=== PATIENT | male | born 1980 | race African-American/Black ===

== ENCOUNTER 2017-07-30 11:02 | Emergency (ER) | payer MEDICAID ==
[~2017-07-30] VITALS: Ht 182.9 cm; Wt 79.4 kg
[2017-07-30 11:14] VITALS: BP 123/80
[2017-07-30 11:59] VITALS: BP 123/80
--- NOTE | 2017-07-30 12:25 | Diagnostic Imaging Report ---
Indication: pain Findings: 3 views of the right hand were obtained. Normal bony mineralization and alignment are demonstrated. No acute fractures, erosions, or periosteal reaction are seen. Soft tissues are unremarkable. Impression: No acute findings.
--- NOTE | 2017-07-30 12:56 | Emergency Room Report ---
History of Present Illness General Chief Complaint: Pain Source: Patient Present Illness HPI 37-year-old male complaining of right finger pain for one week. Patient states he was playing football caught the ball injured his finger does not know how unknown has since had pain to right index finger. Worse with movement. No other injuries Allergies: Coded Allergies: No Known Allergies (Unverified , 07/30/17) Patient History Past Medical History: see triage record Past Surgical History: none Pertinent Family History: none Reviewed Nursing Documentation: PMH: Agreed, PSxH: Agreed Nursing Documentation-PMH Past Medical History: No Stated History Review of Systems All Other Systems: negative except mentioned in HPI Physical Exam Vital Signs Date Time Temp Pulse Resp B/P (MAP) Pulse Ox O2 Delivery O2 Flow Rate FiO2 07/30/17 11:08 97.9 50 16 123/80 100 Room Air Sp02 EP Interpretation: reviewed, normal General Appearance: normal inspection, well appearing, no apparent distress, alert, GCS 15, non-toxic Head: normocephalic, atraumatic Eyes: bilateral eye normal inspection, bilateral eye PERRL, bilateral eye EOMI ENT: normal ENT inspection, normal pharynx, normal voice, moist mucus membranes Neck: normal inspection, full range of motion, supple Respiratory: normal inspection, lungs clear, normal breath sounds, no respiratory distress, no retraction, no wheezing, speaking full sentences, chest symmetrical Cardiovascular #1: normal inspection, regular rate, rhythm, no edema, normal capillary refill Cardiovascular #2: 2+ radial (R), 2+ radial (L) Gastrointestinal: normal inspection, non tender, soft, non-distended, no guarding Genitourinary: no CVA tenderness Musculoskeletal: back normal, other - Right index finger, swelling noted distal phalanx, around PIP, tender to palpation, FDS and FDP intact, no other abnormalities Neurologic: normal inspection, alert, oriented x3, responsive, motor strength/ tone normal, sensory intact, normal gait, speech normal Psychiatric: normal inspection, judgement/insight normal, memory normal Skin: normal inspection, normal color, no rash, warm/dry, well hydrated, normal turgor Medical Decision Making Diagnostic Impression: Primary Impression: Phalanx, distal fracture of finger ER Course 37-year-old male with right finger pain DDX: Contusion vs. fracture Plan: XR ER course: Distal phalanx fracture Finger splint applied Disposition: Patient instructed to keep splint on at all times, and to follow up with orthopedic surgery in 1 week. Patient educated to rest, ice, and elevate extremity and to avoid vigorous activity. Strict precautions discussed with patient on when to return to the emergency room including increased redness or swelling joints, increased pain/swelling of extremity, fever or chills, which could indicate severe illness. Patient is to follow up with their primary care doctor within 5 days. Patient also instructed to follow up with an orthopedic doctor if continuing to have mild/moderate pain as he may need further outpatient imaging. Patient agrees with plan. Please note that this Emergency Department Report was dictated using [employer] process architect technology software, occasionally this can lead to erroneous entry secondary to interpretation by the dictation equipment. Xray ordered: Right hand 3 view Indication: Pain EP Interpretation: Yes Interpretation: right second digit distal phalanx fracture Impression: Right second digit distal phalanx fracture Electronically signed by Owen Abbott MD Last Vital Signs Date Time Temp Pulse Resp B/P (MAP) Pulse Ox O2 Delivery O2 Flow Rate FiO2 07/30/17 11:59 97.9 55 16 123/80 100 Room Air Disposition: HOME, SELF-CARE Condition: Stable Patient Instructions: Finger Fracture, [id number] Additional Instructions: Please followup with orthopedics in one week Owen Abbott M.D. Jul 30, 2017 12:56
== END 2017-07-30 12:09 | disposition home or self-care (01) ==
LOC: EMR 11:34
DX: S62.630G Displaced fracture of distal phalanx of right index finger, subsequent encounter for fracture with delayed healing (principal); W21.01XD Struck by football, subsequent encounter
CPT/HCPCS: 99283

== ENCOUNTER 2019-06-24 09:01 | Emergency (ER) | payer SELFPAY ==
[~2019-06-24] VITALS: Ht 185.4 cm; Wt 74.8 kg
[2019-06-24] MEDS ORDERED: NKM (09:10)
--- NOTE | 2019-06-24 09:10 | NUR ---
ED Nurse Note: Patient walked into ED from home c/o left rib pain after punched by elbow while playing basketball last week. patient is alert awake x4 ambulatory steady gait, breathing unlabored and even, talking in full sentences.
[2019-06-24] MEDS ORDERED: Naproxen 500mg tab ORAL ONE (09:15)
[2019-06-24] MEDS ORDERED: Acetaminophen 500mg (ES) tab ORAL ONE (09:15)
[2019-06-24 09:19] VITALS: BP 112/62
--- NOTE | 2019-06-24 09:28 | NUR ---
ED Nurse Note: patient changed into gown, waiting for xray, stable in bed.
--- NOTE | 2019-06-24 09:35 | Emergency Room Report ---
History of Present Illness General Chief Complaint: Pain Source: Patient Present Illness HPI 38-year-old male presents with left chest wall pain started 1 week ago after playing basketball he was elbowed while he was making a lay up, he denies any shortness of breath, he endorses chest wall ache worsened with movement alleviated with rest, severity is moderate, symptoms are intermittent, he does endorse deep breathing makes the pain worse no nausea no vomiting no abdominal pain patient presents for evaluation Allergies: Coded Allergies: No Known Allergies (Unverified , 07/30/17) Patient History Past Medical History: see triage record Reviewed Nursing Documentation: PMH: Agreed; PSxH: Agreed Nursing Documentation-PMH Past Medical History: No History, Except For Hx Cancer: Yes - lung lymphoma 2002 Review of Systems All Other Systems: negative except mentioned in HPI Physical Exam Vital Signs Date Time Temp Pulse Resp B/P (MAP) Pulse Ox O2 Delivery O2 Flow Rate FiO2 06/24/19 09:05 98.8 50 18 110/59 (76) 99 Room Air Sp02 EP Interpretation: reviewed, normal General Appearance: well appearing, no apparent distress, alert Head: normocephalic, atraumatic Eyes: bilateral eye PERRL, bilateral eye EOMI ENT: uvula midline, moist mucus membranes Neck: supple, thyroid normal, supple/symm/no masses Respiratory: lungs clear, no respiratory distress, no retraction, no accessory muscle use Cardiovascular #1: normal peripheral pulses, regular rate, rhythm, no edema, no gallop, no murmur, other - Tenderness to palpation left chest wall 5/6 lateral ribs Gastrointestinal: non tender, soft, no guarding, no rebound Musculoskeletal: normal inspection Neurologic: alert, oriented x3 Psychiatric: mood/affect normal Skin: no rash, warm/dry Medical Decision Making Diagnostic Impression: Primary Impression: Contusion of left chest wall Qualified Codes: S20.212A - Contusion of left front wall of thorax, initial encounter ER Course Patient presents with chest wall pain most likely contusion versus rib fracture versus ACS Patient given pain meds, incentive spirometry disposition home with return precautions x-ray shows no acute fracture Patient most likely with chest wall contusion Other X-Ray Diagnostic Results Other X-Ray Diagnostic Results : X-Ray ordered: PA chest, left rib series # of Views/Limited Vs Complete: Complete Indication: Pain EP Interpretation: Yes Interpretation: no fractures Impression: No acute disease Electronically Signed by: Dereje Quiles MD Last Vital Signs Date Time Temp Pulse Resp B/P (MAP) Pulse Ox O2 Delivery O2 Flow Rate FiO2 06/24/19 09:19 98.8 56 19 112/62 100 Room Air Disposition: HOME, SELF-CARE Condition: Stable Scripts Lidocaine Patch* (Lidoderm Patch*) 1 Each Adh..patch 1 PATCH TOPIC DAILY, #7 PATCH 0 Refills Patch(es) may remain in place for up to 12 hours in any 24-hour period. Prov: Dereje Quiles MD 06/24/19 Methocarbamol* (ROBAXIN-750*) 750 Mg Tablet 750 MG PO QID, #28 TAB 0 Refills Prov: Dereje Quiles MD 06/24/19 Naproxen* (NAPROSYN*) 250 Mg Tablet 250 MG ORAL BID PRN for For Pain, #20 TAB 0 Refills Prov: Dereje Quiles MD 06/24/19 Referrals: [facility] Chirag Degroot [facility]. [facility] Patient Instructions: Chest Contusion, [id number], Chest Wall Pain, Easy-to- Read Additional Instructions: The patient was provided with discharge instructions, notified to follow-up with a primary care doctor and or specialist in the next 24-48 hours, and to return to the ED if they have worsening of their symptoms. Please note that this report is being documented using DRAGON technology. This can lead to erroneous entry secondary to incorrect interpretation by the dictating instrument. Dereje Quiles MD Jun 24, 2019 09:35
--- NOTE | 2019-06-24 09:41 | NUR ---
ED Nurse Note: patient went to xray in stable condition
[2019-06-24] MEDS ORDERED: LIDODERM700 M1 TOPIC (10:03)
[2019-06-24] MEDS ORDERED: NAPROXEN250 MG ORAL (10:03)
[2019-06-24] MEDS ORDERED: ROBAXIN-750750 MG PO (10:03)
--- NOTE | 2019-06-24 10:09 | NUR ---
ED Nurse Note: per Dr. Quiles's order, patient instructed to use incentive spirometer, provided 1 incentive spirometer. patient verbalized understanding and demonstrated proper use.
[2019-06-24 10:11] VITALS: BP 112/62
--- NOTE | 2019-06-24 10:11 | NUR ---
ER DISCHARGE NOTE: Patient is cleared to be discharged per ERMD DR REYES, pt is aox4, on room air, with stable vital signs. pt was given dc and prescription instructions, pt was able to verbalize understanding, pt id band removed without complications. pt is able to ambulate with steady gait. pt took all belongings.
--- NOTE | 2019-06-24 12:52 | Diagnostic Imaging Report ---
Indication: Left-sided chest pain after trauma playing basketball Technique: 2 views of the left ribs, one view of the chest Comparison: none Findings: The lungs and pleural spaces are clear. No evidence of pneumothorax. No rib fracture demonstrated. The heart size is normal Impression: Negative
== END 2019-06-24 10:11 | disposition home or self-care (01) ==
LOC: EMR 09:39
DX: S20.212A Contusion of left front wall of thorax, initial encounter (principal); Z85.72 Personal history of non-Hodgkin lymphomas; W50.0XXA Accidental hit or strike by another person, initial encounter; Y93.67 Activity, basketball; Y92.9 Unspecified place or not applicable
CPT/HCPCS: 99283

== ENCOUNTER 2019-08-08 09:05 | Emergency (ER) | payer SELFPAY ==
[~2019-08-08] VITALS: Ht 182.9 cm; Wt 77.1 kg
[~2019-08-08 09:05] MED LIST: LIDODERM700 M1 TOPIC; NAPROXEN250 MG ORAL; NKM; ROBAXIN-750750 MG PO
[2019-08-08 09:16] VITALS: BP 115/75
--- NOTE | 2019-08-08 09:17 | NUR ---
ED Nurse Note:pt. came with sports related left wrist injury and pain, skin is intact and light swelling noted in the wrist area
--- NOTE | 2019-08-08 09:24 | Emergency Room Report ---
History of Present Illness General Chief Complaint: Upper Extremity Injury Source: Patient Present Illness HPI Patient presents with a left hand injury sustained playing flag football yesterday. He was tackled and hit his left wrist. There is been more swelling and increased pain through the night. He feels some numbness over the dorsum of his hand. He is able to make a fist but there is weakness in the hand. Iced last night. Pain rated 8/10, aching radiating somewhat into the forearm. No elbow or shoulder pain. No other trauma sustained. R handed Allergies: Coded Allergies: No Known Allergies (Unverified , 07/30/17) Patient History Past Medical History: see triage record Social History: Denies: smoking Social History Narrative business information manager, not working Reviewed Nursing Documentation: PMH: Agreed; PSxH: Agreed Nursing Documentation-PMH Past Medical History: No History, Except For Hx Cancer: Yes - lung lymphoma 2003 Review of Systems Constitutional: Denies: fever Cardiovascular: Denies: chest pain Gastrointestinal: Denies: abdominal pain Musculoskeletal: Reports: see HPI Skin: Reports: see HPI Neurological: Reports: see HPI Hematologic/Lymphatic: Reports: see HPI Physical Exam Vital Signs Date Time Temp Pulse Resp B/P (MAP) Pulse Ox O2 Delivery O2 Flow Rate FiO2 08/08/19 09:10 98.1 52 18 115/75 (88) 100 Room Air Sp02 EP Interpretation: reviewed, normal General Appearance: well appearing, no apparent distress, GCS 15 Head: normocephalic Eyes: bilateral eye normal inspection, bilateral eye PERRL ENT: moist mucus membranes Neck: full range of motion Respiratory: normal inspection Cardiovascular #1: regular rate, rhythm Cardiovascular #2: 2+ radial (L) - Capillary refill normal Gastrointestinal: normal inspection Musculoskeletal: gait/station normal, tenderness - Left wrist dorsum of hand first and second metacarpals no stuff box tenderness Neurologic: alert, oriented x3, distal neuro normal Psychiatric: mood/affect normal Skin: normal color, other - Hematoma dorsum of hand Medical Decision Making Diagnostic Impression: Primary Impression: Contusion of left wrist Qualified Codes: S60.212A - Contusion of left wrist, initial encounter ER Course Patient presents with left wrist injury. Differential includes contusion, sprain versus fracture. The snuffbox is not tender and therefore navicular is less suspicious at the moment. He has more pain over the medic carpals index and middle. Tendons are intact. X-rays are indicated. Ice and Motrin are given. X-ray without fracture. Splint and sling applied by tech. Position excellent with decreased pain. Distal neurovascular checked by me and normal. Discussed treatment plan with patient. In addition advised that there could be a hairline fracture which may show up later. Advised the patient to follow-up. Patient stable for outpatient observation and treatment. Other X-Ray Diagnostic Results Other X-Ray Diagnostic Results : X-Ray ordered: Left wrist # of Views/Limited Vs Complete: 3 View Indication: Other EP Interpretation: Yes Interpretation: no dislocation, no soft tissue swelling, no fractures Impression: No acute disease Electronically Signed by: Electronically signed by Jermaine Granados MD Last Vital Signs Date Time Temp Pulse Resp B/P (MAP) Pulse Ox O2 Delivery O2 Flow Rate FiO2 08/08/19 10:55 98.1 68 18 115/75 100 Room Air Status: improved Disposition: HOME, SELF-CARE Condition: Improved Scripts Ibuprofen* (MOTRIN*) 600 Mg Tablet 600 MG ORAL Q6H PRN for For Pain, #20 TAB 0 Refills Prov: Jermaine Granados MD 08/08/19 Jermaine Granados MD Aug 08, 2019 09:23
--- NOTE | 2019-08-08 10:36 | Diagnostic Imaging Report ---
Indication: Left wrist pain Findings: 3 views of the left wrist were obtained. No acute fractures, malalignment, erosions or periostitis are identified. Soft tissues are unremarkable. Impression: No acute findings.
[2019-08-08] MEDS ORDERED: IBUPROFEN600 MG ORAL (10:46)
--- NOTE | 2019-08-08 10:50 | NUR ---
ER DISCHARGE NOTE:wrist splint with sling was placed on left arm Patient is cleared to be discharged per ERMD, pt is aox4, on room air, with stable vital signs. pt was given dc and prescription instructions, pt was able to verbalize understanding, pt is able to ambulate with steady gait. pt took all belongings.
== END 2019-08-08 10:58 | disposition home or self-care (01) ==
LOC: EMR 10:45
DX: S60.212A Contusion of left wrist, initial encounter (principal); W50.0XXA Accidental hit or strike by another person, initial encounter; Y93.62 Activity, american flag or touch football; Y92.9 Unspecified place or not applicable
CPT/HCPCS: 29125; 99283